=== PATIENT | male | born 1960 | race Caucasian/White ===

== ENCOUNTER 2019-04-05 17:58 | Inpatient (IN) | payer OTHER ==
[~2019-04-05] VITALS: Ht 188 cm; Wt 104.4 kg
--- NOTE | 2019-04-05 18:41 | PHYS DOC ---
Past Medical History Past Medical History: No Pertinent History Additional Past Surgical Histo: Left knee arthroscopy and MCL repair, Left shoulder Smoking: Quit Greater Than 1 Year Additional Information: Vapes Alcohol Use: None Drug Use: None Adult General Chief Complaint Chief Complaint: KNEE INJURY HPI HPI 58-year-old male with recent left knee arthroscopy and ligament repair with Dr. Scott (orthopedics) presents with report of syncopal episode at approximately 1530 today. Patient reports he suddenly became very weak ("his legs just gave out") and ended up falling. Patient reports he thinks he lost consciousness and awoke on the ground having urinated on himself. Denies history of seizures. Denies fever/chills. Reports he feels short of breath and it hurts to take a deep breathe. Reports some left leg swelling which has been similar to how it has been since surgery. Patient reports he called and spoke with Dr. Scott, who sent patient to the ED for evaluation for possible DVT. Review of Systems Review of Systems Constitutional: Denies fever or chills Eyes: Denies redness or eye pain HENT: Denies nasal congestion or sore throat Respiratory: Denies cough; reports shortness of breath Cardiovascular: Denies chest pain or palpitations GI: Denies abdominal pain, nausea, or vomiting : Denies dysuria or hematuria Musculoskeletal: Denies back pain; reports left leg/knee pain and swelling Integument: Denies rash or skin lesions Neurologic: Denies headache, focal weakness or sensory changes; reports loss of bladder after syncopal episode Complete systems were reviewed and found to be within normal limits, except as documented in this note. Current Medications Current Medications Current Medications Medications (Trade) Dose Ordered Sig/Maxine Start Time Stop Time Status Last Admin Dose Admin Sodium Chloride 1,000 ml @ 1,000 mls/hr 1X ONCE 04/05/19 19:15 04/05/19 20:14 DC 04/05/19 19:19 1,000 MLS/HR Allergies Allergies Allergies Coded Allergies Type Severity Reaction Last Updated Verified Penicillins Allergy Severe anaphylaxis 04/05/19 Yes Sulfa (Sulfonamide Antibiotics) Allergy Severe anaphylaxis 04/05/19 Yes Physical Exam Physical Exam Constitutional: Well developed, well nourished, no acute distress, non-toxic appearance HENT: Normocephalic, atraumatic, oropharynx moist Eyes: PERRL, EOMI, conjunctiva normal, no discharge Neck: Normal range of motion, no midline tenderness, supple, no meningeal signs Cardiovascular: Heart rate tachycardic, regular rhythm Lungs & Thorax: Bilateral breath sounds clear to auscultation, no wheezing Abdomen: Soft, no tenderness Skin: Warm, dry, no erythema, post op wounds as below Extremities: No tenderness, ROM intact, left lower extremity edema, left surgical wounds clean, dry and intact with sutures, no surrounding erythema Neurologic: Alert and oriented X 3, normal motor function, normal sensory function, no focal deficits noted Psychologic: Affect normal, judgement normal Current Patient Data Vital Signs Vital Signs Date Time Temp Pulse Resp B/P (MAP) Pulse Ox O2 Delivery O2 Flow Rate FiO2 04/05/19 19:04 16 151/82 (105) 96 Room Air 04/05/19 18:20 98.9 80 98.9 Lab Values Laboratory Tests Test 04/05/19 18:49 04/05/19 19:15 White Blood Count 10.5 x10^3/uL (4.0-11.0) Red Blood Count 5.24 x10^6/uL (4.30-5.70) Hemoglobin 16.5 g/dL (13.0-17.5) Hematocrit 49.0 % (39.0-53.0) Mean Corpuscular Volume 94 fL (79-100) Mean Corpuscular Hemoglobin 32 pg (25-35) Mean Corpuscular Hemoglobin Concent 34 g/dL (31-37) Red Cell Distribution Width 13.6 % (11.5-14.5) Platelet Count 173 x10^3/uL (140-400) Neutrophils (%) (Auto) 82 % (31-73) H Lymphocytes (%) (Auto) 9 % (24-48) L Monocytes (%) (Auto) 8 % (0-9) Eosinophils (%) (Auto) 1 % (0-3) Basophils (%) (Auto) 0 % (0-3) Neutrophils # (Auto) 8.6 x10^3/uL (1.8-7.7) H Lymphocytes # (Auto) 0.9 x10^3/uL (1.0-4.8) L Monocytes # (Auto) 0.9 x10^3/uL (0.0-1.1) Eosinophils # (Auto) 0.1 x10^3/uL (0.0-0.7) Basophils # (Auto) 0.0 x10^3/uL (0.0-0.2) Prothrombin Time 14.2 SEC (11.7-14.0) H Prothrombin Time INR 1.1 (0.8-1.1) Activated Partial Thromboplast Time 29 SEC (24-38) Sodium Level 141 mmol/L (136-145) Potassium Level 4.8 mmol/L (3.5-5.1) Chloride Level 105 mmol/L (98-107) Carbon Dioxide Level 30 mmol/L (21-32) Anion Gap 6 (6-14) Blood Urea Nitrogen 15 mg/dL (8-26) Creatinine 1.1 mg/dL (0.7-1.3) Estimated GFR (Cockcroft-Gault) 68.8 BUN/Creatinine Ratio 14 (6-20) Glucose Level 130 mg/dL (70-99) H Lactic Acid Level 1.6 mmol/L (0.4-2.0) Calcium Level 8.6 mg/dL (8.5-10.1) Magnesium Level 1.8 mg/dL (1.8-2.4) Total Bilirubin 0.4 mg/dL (0.2-1.0) Aspartate Amino Transferase (AST) 15 U/L (15-37) Alanine Aminotransferase (ALT) 31 U/L (16-63) Alkaline Phosphatase 66 U/L (46-116) Creatine Kinase 104 U/L (39-308) Creatine Kinase MB (Mass) 2.7 ng/mL (0.0-3.6) Creatine Kinase MB Relative Index 2.6 % (0-4) Troponin I Quantitative 0.556 ng/mL (0.000-0.055) Total Protein 6.1 g/dL (6.4-8.2) L Albumin 3.4 g/dL (3.4-5.0) Albumin/Globulin Ratio 1.3 (1.0-1.7) Laboratory Tests 04/05/19 18:49 Laboratory Tests 04/05/19 19:15 EKG EKG EKG obtained @ 1907 and read @ 1910. NSR w/o ST-elevation changes noted. 79 BPM.[] Radiology/Procedures Radiology/Procedures PROCEDURE: VENOUS LOWER EX Addendum: To clarify the report, partially occlusive thrombus is seen involving one of the posterior tibial veins and occlusive thrombus is seen involving one of the peroneal veins within the left calf. These findings are consistent with left calf DVT. There is no sonographic evidence of deep venous thrombosis involving the left popliteal, superficial femoral or left common femoral vein. Electronically signed by: Bobby Peralta MD (04/05/2019 8:15 PM) [facility] PROCEDURE: CT HEAD AND CERVICAL SPINE WO CT scan of the head without contrast 04/05/2019 Clinical History: Syncope. Head pain post fall. Technique: Unenhanced, contiguous, 5 mm axial sections were obtained through the head. One or more of the following individualized dose reduction techniques were utilized for this study: 1. Automated exposure control. 2. Adjustment of the mA and/or kV according to patient size. 3. Use of iterative reconstruction technique. Findings: The ventricles and sulci are within normal limits in size and configuration. No acute parenchymal abnormality is seen. No extra-axial fluid collection is noted. No skull fracture is seen. Impression: No acute intracranial abnormality is seen. CT scan of the cervical spine without contrast 04/05/2019 Clinical history: Neck pain post fall. Technique: Unenhanced, contiguous, 0.625 mm axial sections were obtained through the cervical spine. Axial, coronal and sagittal reconstructed images were obtained. One or more of the following individualized dose reduction techniques were utilized for this study: 1. Automated exposure control. 2. Adjustment of the mA and/or kV according to patient size. 3. Use of iterative reconstruction technique. Findings: Sagittal coronal reconstructed images demonstrate minimal lateral curvature of the cervical spine, convex to the right. There is mild straightening of the normal cervical lordosis. Degenerative changes consisting of vertebral endplate sclerosis and minimal to mild anterior vertebral body osteophyte formation are seen involving the cervical disc spaces. No fracture or subluxation cervical vertebrae seen. Degenerative changes are seen involving the uncovertebral and facet joints throughout the mid and lower cervical disc spaces. Bullous emphysematous changes are seen involving the apices of both lungs. Impression: No fracture or subluxation of the cervical vertebra is identified. Electronically signed by: Bobby Peralta MD (04/05/2019 9:07 PM) [facility] PROCEDURE: CT ANGIOGRAPHY CHEST Exam: CT chest with contrast INDICATION: Syncope TECHNIQUE: Sequential axial images through the chest obtained without IV contrast. Sagittal and coronal reformatted images were reconstructed from the axial data and reviewed. Three-D reformatted images reconstructed from the axial data and reviewed. Comparisons: None FINDINGS: Visualized portions of the thyroid are unremarkable. No enlarged mediastinal lymph nodes. Heart size is normal. No pericardial effusion. Thoracic aorta has a normal course and caliber. Pulmonary artery is not enlarged. Acute pulmonary emboli noted within lobar branches of the right middle and upper lobe as well as left upper and lower lobe extending into segmental and subsegmental branches. Subsegmental pulmonary emboli in the right lower lobe also noted. Airways are patent. No consolidation or pneumothorax. Strandy opacities at the dependent portion the lung bases likely representing atelectasis. No suspicious lung nodules are identified. Visualized upper abdomen is unremarkable. Small hiatal hernia. No suspicious osseous lesions or acute fractures. IMPRESSION: Extensive pulmonary emboli noted within lobar branches of the right upper, middle and left upper and lower lobe with subsegmental pulmonary emboli in the right lower lobe. Exposure: One or more of the following in the visualized dose reduction techniques were utilized for this examination: 1. Automated exposure control 2. Adjustment of the MA and/or KV according to patient size 3. Use of iterative of reconstructive technique Electronically signed by: Darien Gonzáles MD (04/05/2019 8:56 PM) [facility] [place] Course & Med Decision Making Course & Med Decision Making Pertinent Labs and Imaging studies reviewed. (See chart for details) Patient with recent surgical arthroscopy to left knee with Dr. Scott presents with syncopal episode and fall with associated leg swelling. Venous doppler positive for DVT. Labs obtained and posted to chart. CT head/cervical spine without acute process. Concern for possible PE. Heparin bolus/gtt initiated. CTA chest with findings consistent for acute bilateral PEs. Patient requiring admission for further evaluation and treatment. Discussed with Dr. Greenwood (bridal stylist sales consultant for Dr. Parker, who admits for PCP) who is in agreement with admission. Discussed case with Dr. Scott (orthopedics) regarding. Consult placed. Discussed findings and plan with patient and family, who acknowledge understanding and agreement. Dragon Disclaimer Dragon Disclaimer This electronic medical record was generated, in whole or in part, using a voice recognition dictation system. Departure Departure Impression: Primary Impression: Syncope Additional Impressions: DVT (deep venous thrombosis) Chest pain S/P left knee surgery Pulmonary embolism Disposition: 09 ADMITTED INPATIENT Admitting Physician: Sonya Greenwood (bridal stylist sales consultant for Dr. Parker who admits for Dr. Weiss (PCP)) Condition: GUARDED Referrals: UNKNOWN PCP NAME (PCP) Scripts Apixaban (ELIQUIS) 5 Mg Tablet 5 MG PO BID for PE for 30 Days, #60 TAB Prov: GILBERT PARKER MD 04/08/19 Apixaban (ELIQUIS) 5 Mg Tablet 10 MG PO BID for PE for 6 Days, #24 TAB Prov: GILBERT PARKER MD 04/08/19 NIHSS Stroke Scale NIH Stroke Scale: NIH Stroke Scale Response (Comments) Value Level of Consciousness: 0 Alert/Responsive 0 LOC Questions: 0 Answers both correctly 0 LOC Commands: 0 Performs both tasks 0 Best Gaze: 0 Normal 0 Visual: 0 No visual loss 0 Facial Palsy: 0 Normal, symmetrical 0 Motor - Left Arm 0 No drift 0 Motor - Right Arm 0 No drift 0 Motor - Left Leg 0 No drift 0 Motor: Right Leg 0 No drift 0 Limb Ataxia: 0 Absent 0 Sensory: 0 No loss 0 Best Language: 0 Normal 0 Dysathria: 0 Normal 0 Extinction and Inattention: 0 Normal 0 Total 0 Critical Care Time Critical care time was 30 minutes which includes time at bedside, spent in discussion of patient's care with specialists and/or family members, with interpretation of laboratory and/or radiological studies and is exclusive of procedures. Problem Qualifiers Primary Impression: Syncope Syncope type: unspecified Qualified Codes: R55 - Syncope and collapse Additional Impressions: DVT (deep venous thrombosis) DVT location: lower extremity Affected thrombotic vein of extremity: unspecified vein of extremity Chronicity: acute Laterality: left Qualified Codes: I82.402 - Acute embolism and thrombosis of unspecified deep veins of left lower extremity Chest pain Chest pain type: unspecified Qualified Codes: R07.9 - Chest pain, unspecified Pulmonary embolism Pulmonary embolism type: unspecified Chronicity: acute Acute cor pulmonale presence: without acute cor pulmonale Qualified Codes: I26.99 - Other pulmonary embolism without acute cor pulmonale LANRE FRANKLIN DO Apr 05, 2019 18:41
[2019-04-05 19:06] LABS: BASO % 0 % (0-3); EOS # 0.1 x10^3/uL (0.0-0.7); EOS % 1 % (0-3); HEMOGLOBIN 16.5 g/dL (13.0-17.5); LYMPH # 0.9 x10^3/uL (1.0-4.8); LYMPH % 9 % (24-48); MEAN CORPUSCULAR HEMOGLOBIN 32 pg (25-35); MEAN CORPUSCULAR HGB CONC 34 g/dL (31-37); MEAN CORPUSCULAR VOLUME 94 fL (79-100); MONO # 0.9 x10^3/uL (0.0-1.1); MONO % 8 % (0-9); NEUT # 8.6 x10^3/uL (1.8-7.7); NEUT % 82 % (31-73); PLATELET COUNT 173 x10^3/uL (140-400); RED BLOOD COUNT 5.24 x10^6/uL (4.30-5.70); RED CELL DISTRIBUTION WIDTH 13.6 % (11.5-14.5); WHITE BLOOD COUNT 10.5 x10^3/uL (4.0-11.0)
[2019-04-05] MEDS ORDERED: IV NORMAL SALINE 1000ML BAG 1,000 ML IV ONE (19:15)
[2019-04-05] MEDS ORDERED: HEPARIN for IV BOLUS 10,000 UNIT/10 ML VIAL. IV ONE (19:30)
[2019-04-05] MEDS ORDERED: HEPARIN for IV BOLUS 10,000 UNIT/10 ML VIAL. IV PRN ×2 (19:30)
[2019-04-05] MEDS ORDERED: ONDANSETRON PF 4 MG/2 ML VIAL. IV PRN (19:30)
--- NOTE | 2019-04-05 19:30 | RAD ---
Left lower extremity venous duplex study 04/05/2019 Clinical History: Left leg pain and swelling. Technique: Using a combination of real time ultrasound imaging and color-flow and pulse Doppler imaging techniques along with graded compression and augmentation, duplex evaluation of the deep venous system of the left lower extremity was performed. Multiple images were obtained. Findings: There is no sonographic evidence of deep venous thrombosis involving the visualized deep venous structures of the left lower extremity. Impression: Negative study. Electronically signed by: Bobby Peralta MD (04/05/2019 7:28 PM) [facility]
[2019-04-05] MEDS: fentaNYL PF VIAL 100 MCG/2 ML VIAL IV PRN ×2 (19:34→23:04)
[2019-04-05 19:37] LABS: PROTHROMBIN TIME PATIENT 14.2 SEC (11.7-14.0)
[2019-04-05 19:45] LABS: CALCIUM 8.6 mg/dL (8.5-10.1); CREATININE 1.1 mg/dL (0.7-1.3); GFR 68.8; POTASSIUM 4.8 mmol/L (3.5-5.1)
[2019-04-05 19:50] LABS: ALBUMIN 3.4 g/dL (3.4-5.0); ALBUMIN/GLOBULIN RATIO 1.3 (1.0-1.7); MAGNESIUM 1.8 mg/dL (1.8-2.4); TOTAL BILIRUBIN 0.4 mg/dL (0.2-1.0); TOTAL PROTEIN 6.1 g/dL (6.4-8.2)
[2019-04-05] MEDS: HEPARIN 25,000UTS/500ML PREMIX 500 ML IV PRN (19:51)
[2019-04-05] MEDS ORDERED: CONTRAST GIVEN. MC PRN (20:00)
[2019-04-05] MEDS ORDERED: IOHEXOL 350 MG/ML 100 ML VIAL. IV ONE (20:00)
--- NOTE | 2019-04-05 20:59 | RAD ---
Exam: CT chest with contrast INDICATION: Syncope TECHNIQUE: Sequential axial images through the chest obtained without IV contrast. Sagittal and coronal reformatted images were reconstructed from the axial data and reviewed. Three-D reformatted images reconstructed from the axial data and reviewed. Comparisons: None FINDINGS: Visualized portions of the thyroid are unremarkable. No enlarged mediastinal lymph nodes. Heart size is normal. No pericardial effusion. Thoracic aorta has a normal course and caliber. Pulmonary artery is not enlarged. Acute pulmonary emboli noted within lobar branches of the right middle and upper lobe as well as left upper and lower lobe extending into segmental and subsegmental branches. Subsegmental pulmonary emboli in the right lower lobe also noted. Airways are patent. No consolidation or pneumothorax. Strandy opacities at the dependent portion the lung bases likely representing atelectasis. No suspicious lung nodules are identified. Visualized upper abdomen is unremarkable. Small hiatal hernia. No suspicious osseous lesions or acute fractures. IMPRESSION: Extensive pulmonary emboli noted within lobar branches of the right upper, middle and left upper and lower lobe with subsegmental pulmonary emboli in the right lower lobe. Exposure: One or more of the following in the visualized dose reduction techniques were utilized for this examination: 1. Automated exposure control 2. Adjustment of the MA and/or KV according to patient size 3. Use of iterative of reconstructive technique Electronically signed by: Darien Gonzáles MD (04/05/2019 8:56 PM) [facility]
--- NOTE | 2019-04-05 21:10 | RAD ---
CT scan of the head without contrast 04/05/2019 Clinical History: Syncope. Head pain post fall. Technique: Unenhanced, contiguous, 5 mm axial sections were obtained through the head. One or more of the following individualized dose reduction techniques were utilized for this study: 1. Automated exposure control. 2. Adjustment of the mA and/or kV according to patient size. 3. Use of iterative reconstruction technique. Findings: The ventricles and sulci are within normal limits in size and configuration. No acute parenchymal abnormality is seen. No extra-axial fluid collection is noted. No skull fracture is seen. Impression: No acute intracranial abnormality is seen. CT scan of the cervical spine without contrast 04/05/2019 Clinical history: Neck pain post fall. Technique: Unenhanced, contiguous, 0.625 mm axial sections were obtained through the cervical spine. Axial, coronal and sagittal reconstructed images were obtained. One or more of the following individualized dose reduction techniques were utilized for this study: 1. Automated exposure control. 2. Adjustment of the mA and/or kV according to patient size. 3. Use of iterative reconstruction technique. Findings: Sagittal coronal reconstructed images demonstrate minimal lateral curvature of the cervical spine, convex to the right. There is mild straightening of the normal cervical lordosis. Degenerative changes consisting of vertebral endplate sclerosis and minimal to mild anterior vertebral body osteophyte formation are seen involving the cervical disc spaces. No fracture or subluxation cervical vertebrae seen. Degenerative changes are seen involving the uncovertebral and facet joints throughout the mid and lower cervical disc spaces. Bullous emphysematous changes are seen involving the apices of both lungs. Impression: No fracture or subluxation of the cervical vertebra is identified. Electronically signed by: Bobby Peralta MD (04/05/2019 9:07 PM) [facility]
[2019-04-05] MEDS ORDERED: ASPIRIN 325 MG TABLET PO ONE (22:00)
[2019-04-05 22:05] VITALS: BP 162/100
[2019-04-05 23:05] VITALS: BP 145/86
[2019-04-05 23:10] LABS: BILIRUBIN,URINE NEGATIVE (NEG); CLARITY,URINE CLEAR; COLOR,URINE YELLOW; NITRITE,URINE NEGATIVE (NEG); PH,URINE 5.5; PROTEIN,URINE NEGATIVE (NEG-TRACE); UROBILINOGEN,URINE 0.2 mg/dL (0.2 mg/dL)
[2019-04-05 23:17] LABS: BACTERIA,URINE 0 /HPF (0-FEW); RBC,URINE 0 /HPF (0-2); WBC,URINE RARE /HPF (0-4)
[2019-04-06 03:50] VITALS: BP 149/76
[2019-04-06] MEDS: fentaNYL PF VIAL 100 MCG/2 ML VIAL IV PRN (04:23)
--- NOTE | 2019-04-06 06:37 | EKG ---
[facility] [address] [place] [address] Test Date: 2019-04-05 Test Time: 19:07:05 Pat Name: HUMBERTO ARAGON Department: Room: Gender: M Manager Dialysis: : 1960 Requested By: LANRE FRANKLIN Order Number: [id number] Reading MD: Measurements Intervals [place] Rate: 79 P: 43 MT: 168 QRS: 32 QRSD: 92 T: 14 QT: 372 QTc: 428 Interpretive Statements SINUS RHYTHM NORMAL ECG RI6.01 Unconfirmed report No previous ECG available for comparison
[2019-04-06 07:00] VITALS: BP 158/72
[2019-04-06] MEDS ORDERED: MELO15TA23 PO (08:25)
[2019-04-06] MEDS ORDERED: DOCU-109 PO (08:25)
[2019-04-06] MEDS ORDERED: ASPI-630 PO (08:25)
[2019-04-06] MEDS ORDERED: CETI10TA22 PO (08:25)
[2019-04-06] MEDS ORDERED: CALC500T54 PO (08:25)
[2019-04-06] MEDS ORDERED: CHOL100013 PO (08:25)
[2019-04-06] MEDS ORDERED: HYDR-2761 PO (08:25)
[2019-04-06] MEDS ORDERED: OMEP20CA10 PO (08:25)
[2019-04-06] MEDS ORDERED: ANTI-COAG MONITOR BY PHARMACY. MC PRN (08:30)
--- NOTE | 2019-04-06 10:18 | PDOC ---
Provider Note Provider Note Pt seen.H&P dictated.#[id number]. GILBERT PARKER MD Apr 06, 2019 10:18
--- NOTE | 2019-04-06 10:34 | PDOC2 ---
CONSULT Date of Consult Date of Consult DATE: 04/06/19 TIME: 10:21 Reason for Consult Reason for Consult: Patient with syncopal episode at home after recent arthroscope of right knee, and concern of DVT. Identification/Chief Complaint Chief Complaint Dr Aguilera Source Source: Chart review, Patient History of Present Illness Reason for Visit: Syncopal episode at home yesterday after previous surgery two days prior,with DVT. Past Surgical History Past Surgical History: Other (Right knee arhtroscopy and MCL repair.) Current Problem List Problem List Problems Medical Problems: (1) Chest pain Status: Acute (2) Pulmonary embolism Status: Acute Current Medications Current Medications Current Medications Sodium Chloride 1,000 ml @ 1,000 mls/hr 1X ONCE IV Last administered on 04/05/19at 19:19; Start 04/05/19 at 19:15; Stop 04/05/19 at 20:14; Status DC Ondansetron HCl (Zofran) 4 mg PRN Q8HRS PRN IV NAUSEA/VOMITING; Start 04/05/19 at 19:30; Stop 04/06/19 at 19:29 Fentanyl Citrate (Fentanyl 2ml Vial) 50 mcg PRN Q2HRS PRN IV PAIN Last administered on 04/06/19at 04:23; Start 04/05/19 at 19:30 Heparin Sodium (Porcine) (Heparin Sodium) 7,600 unit 1X ONCE IV Last administered on 04/05/19at 19:52; Start 04/05/19 at 19:30; Stop 04/05/19 at 19:3 1; Status DC Heparin Sodium/ Dextrose 500 ml @ 0 mls/hr CONT PRN IV SEE COMMENTS Last administered on 04/05/19at 19:52; Start 04/05/19 at 19:30 Heparin Sodium (Porcine) (Heparin Sodium) 2,850 unit PRN Q6HRS PRN IV FOR UFH LEVEL LESS THAN 0.2; Start 04/05/19 at 19:30 Heparin Sodium (Porcine) (Heparin Sodium) 1,400 unit PRN Q6HRS PRN IV FOR UFH LEVEL 0.2 - 0.29; Start 04/05/19 at 19:30 Iohexol (Omnipaque 350 Mg/ml) 100 ml 1X ONCE IV Last administered on 04/05/19at 20:35; Start 04/05/19 at 20:00; Stop 04/05/19 at 20:01; Status DC Info (CONTRAST GIVEN -- Rx MONITORING) 1 each PRN DAILY PRN MC SEE COMMENTS; Start 04/05/19 at 20:00; Stop 04/07/19 at 19:59 Aspirin (Kendra Aspirin) 325 mg 1X ONCE PO ; Start 04/05/19 at 22:00; Stop 04/05/19 at 22:01; Status DC Info (Anti-Coagulation Monitoring By Pharmacy) 1 each PRN DAILY PRN MC SEE COMMENTS; Start 04/06/19 at 08:30 Active Scripts Active Reported Colace (Docusate Sodium) 100 Mg Capsule 1 Cap PO BID Vitamin D (Cholecalciferol (Vitamin D3)) 1,000 Unit Capsule 3,000 Unit PO DAILY PRN Zyrtec (Cetirizine Hcl) 10 Mg Tablet 1 Tab PO DAILY Meloxicam 15 Mg Tablet 1 Tab PO DAILY Aspirin 81 Mg Tab.chew 1 Tab PO DAILY Hydrocodone-Apap 5-325 (Hydrocodone Bit/Acetaminophen) 1 Tab Tablet 2 Tab PO PRN Q4HRS PRN Calcium (Calcium Carbonate) 500 Mg Tab.chew 500 Mg PO DAILY Omeprazole 20 Mg Capsule. 1 Cap PO DAILY Allergies Allergies: Coded Allergies: Penicillins (Verified Allergy, Severe, anaphylaxis, 04/05/19) Sulfa (Sulfonamide Antibiotics) (Verified Allergy, Severe, anaphylaxis, 04/05/19) Physical Exam General: Alert, Oriented X3, Cooperative, No acute distress Extremities: Normal pulses MUSCULOSKELETAL: Other (Patient with surgical portals in left knee r/t arthroscopy) Vitals VITALS Vital Signs Date Time Temp Pulse Resp B/P (MAP) Pulse Ox O2 Delivery O2 Flow Rate FiO2 04/06/19 07:34 18 93 Room Air 04/06/19 07:00 98.4 74 158/72 (100) 98.4 Labs Labs Laboratory Tests Test 04/05/19 18:49 04/05/19 19:15 04/05/19 22:30 04/05/19 23:00 White Blood Count 10.5 x10^3/uL (4.0-11.0) Red Blood Count 5.24 x10^6/uL (4.30-5.70) Hemoglobin 16.5 g/dL (13.0-17.5) Hematocrit 49.0 % (39.0-53.0) Mean Corpuscular Volume 94 fL (79-100) Mean Corpuscular Hemoglobin 32 pg (25-35) Mean Corpuscular Hemoglobin Concent 34 g/dL (31-37) Red Cell Distribution Width 13.6 % (11.5-14.5) Platelet Count 173 x10^3/uL (140-400) Neutrophils (%) (Auto) 82 % (31-73) Lymphocytes (%) (Auto) 9 % (24-48) Monocytes (%) (Auto) 8 % (0-9) Eosinophils (%) (Auto) 1 % (0-3) Basophils (%) (Auto) 0 % (0-3) Neutrophils # (Auto) 8.6 x10^3/uL (1.8-7.7) Lymphocytes # (Auto) 0.9 x10^3/uL (1.0-4.8) Monocytes # (Auto) 0.9 x10^3/uL (0.0-1.1) Eosinophils # (Auto) 0.1 x10^3/uL (0.0-0.7) Basophils # (Auto) 0.0 x10^3/uL (0.0-0.2) Prothrombin Time 14.2 SEC (11.7-14.0) Prothromb Time International Ratio 1.1 (0.8-1.1) Activated Partial Thromboplast Time 29 SEC (24-38) Sodium Level 141 mmol/L (136-145) Potassium Level 4.8 mmol/L (3.5-5.1) Chloride Level 105 mmol/L (98-107) Carbon Dioxide Level 30 mmol/L (21-32) Anion Gap 6 (6-14) Blood Urea Nitrogen 15 mg/dL (8-26) Creatinine 1.1 mg/dL (0.7-1.3) Estimated GFR (Cockcroft-Gault) 68.8 BUN/Creatinine Ratio 14 (6-20) Glucose Level 130 mg/dL (70-99) Lactic Acid Level 1.6 mmol/L (0.4-2.0) Calcium Level 8.6 mg/dL (8.5-10.1) Magnesium Level 1.8 mg/dL (1.8-2.4) Total Bilirubin 0.4 mg/dL (0.2-1.0) Aspartate Amino Transf (AST/SGOT) 15 U/L (15-37) Alanine Aminotransferase (ALT/SGPT) 31 U/L (16-63) Alkaline Phosphatase 66 U/L (46-116) Creatine Kinase 104 U/L (39-308) Creatine Kinase MB (Mass) 2.7 ng/mL (0.0-3.6) Creatine Kinase MB Relative Index 2.6 % (0-4) Troponin I Quantitative 0.556 ng/mL (0.000-0.055) 0.720 ng/mL (0.000-0.055) Total Protein 6.1 g/dL (6.4-8.2) Albumin 3.4 g/dL (3.4-5.0) Albumin/Globulin Ratio 1.3 (1.0-1.7) Urine Collection Type Unknown Urine Color Yellow Urine Clarity Clear Urine pH 5.5 Urine Specific [place] >=1.030 Urine Protein Negative mg/dL (NEG-TRACE) Urine Glucose (UA) Negative mg/dL (NEG) Urine Ketones (Stick) Negative mg/dL (NEG) Urine Blood Negative (NEG) Urine Nitrite Negative (NEG) Urine Bilirubin Negative (NEG) Urine Urobilinogen Dipstick 0.2 mg/dL (0.2 mg/dL) Urine Leukocyte Esterase Trace (NEG) Urine RBC 0 /HPF (0-2) Urine WBC Rare /HPF (0-4) Urine Squamous Epithelial Cells None /LPF Urine Bacteria 0 /HPF (0-FEW) Urine Mucus Slight /LPF Test 04/06/19 02:00 04/06/19 08:45 Heparin Anti-Xa Act, Unfractionated 0.63 IU/mL (0.30-0.70) 0.68 IU/mL (0.30-0.70) Troponin I Quantitative 0.535 ng/mL (0.000-0.055) Laboratory Tests Test 04/05/19 18:49 04/05/19 19:15 04/05/19 22:30 04/05/19 23:00 White Blood Count 10.5 x10^3/uL (4.0-11.0) Red Blood Count 5.24 x10^6/uL (4.30-5.70) Hemoglobin 16.5 g/dL (13.0-17.5) Hematocrit 49.0 % (39.0-53.0) Mean Corpuscular Volume 94 fL (79-100) Mean Corpuscular Hemoglobin 32 pg (25-35) Mean Corpuscular Hemoglobin Concent 34 g/dL (31-37) Red Cell Distribution Width 13.6 % (11.5-14.5) Platelet Count 173 x10^3/uL (140-400) Neutrophils (%) (Auto) 82 % (31-73) Lymphocytes (%) (Auto) 9 % (24-48) Monocytes (%) (Auto) 8 % (0-9) Eosinophils (%) (Auto) 1 % (0-3) Basophils (%) (Auto) 0 % (0-3) Neutrophils # (Auto) 8.6 x10^3/uL (1.8-7.7) Lymphocytes # (Auto) 0.9 x10^3/uL (1.0-4.8) Monocytes # (Auto) 0.9 x10^3/uL (0.0-1.1) Eosinophils # (Auto) 0.1 x10^3/uL (0.0-0.7) Basophils # (Auto) 0.0 x10^3/uL (0.0-0.2) Prothrombin Time 14.2 SEC (11.7-14.0) Prothromb Time International Ratio 1.1 (0.8-1.1) Activated Partial Thromboplast Time 29 SEC (24-38) Sodium Level 141 mmol/L (136-145) Potassium Level 4.8 mmol/L (3.5-5.1) Chloride Level 105 mmol/L (98-107) Carbon Dioxide Level 30 mmol/L (21-32) Anion Gap 6 (6-14) Blood Urea Nitrogen 15 mg/dL (8-26) Creatinine 1.1 mg/dL (0.7-1.3) Estimated GFR (Cockcroft-Gault) 68.8 BUN/Creatinine Ratio 14 (6-20) Glucose Level 130 mg/dL (70-99) Lactic Acid Level 1.6 mmol/L (0.4-2.0) Calcium Level 8.6 mg/dL (8.5-10.1) Magnesium Level 1.8 mg/dL (1.8-2.4) Total Bilirubin 0.4 mg/dL (0.2-1.0) Aspartate Amino Transf (AST/SGOT) 15 U/L (15-37) Alanine Aminotransferase (ALT/SGPT) 31 U/L (16-63) Alkaline Phosphatase 66 U/L (46-116) Creatine Kinase 104 U/L (39-308) Creatine Kinase MB (Mass) 2.7 ng/mL (0.0-3.6) Creatine Kinase MB Relative Index 2.6 % (0-4) Troponin I Quantitative 0.556 ng/mL (0.000-0.055) 0.720 ng/mL (0.000-0.055) Total Protein 6.1 g/dL (6.4-8.2) Albumin 3.4 g/dL (3.4-5.0) Albumin/Globulin Ratio 1.3 (1.0-1.7) Urine Collection Type Unknown Urine Color Yellow Urine Clarity Clear Urine pH 5.5 Urine Specific [place] >=1.030 Urine Protein Negative mg/dL (NEG-TRACE) Urine Glucose (UA) Negative mg/dL (NEG) Urine Ketones (Stick) Negative mg/dL (NEG) Urine Blood Negative (NEG) Urine Nitrite Negative (NEG) Urine Bilirubin Negative (NEG) Urine Urobilinogen Dipstick 0.2 mg/dL (0.2 mg/dL) Urine Leukocyte Esterase Trace (NEG) Urine RBC 0 /HPF (0-2) Urine WBC Rare /HPF (0-4) Urine Squamous Epithelial Cells None /LPF Urine Bacteria 0 /HPF (0-FEW) Urine Mucus Slight /LPF Test 04/06/19 02:00 04/06/19 08:45 Heparin Anti-Xa Act, Unfractionated 0.63 IU/mL (0.30-0.70) 0.68 IU/mL (0.30-0.70) Troponin I Quantitative 0.535 ng/mL (0.000-0.055) Assessment/Plan Assessment/Plan POD # 2 S/P Left knee arthroscopy with MCL repair per Dr Scott on 04/03/2019 motor and sensory intact distally dressing dry and intact portals well approximated calf soft and non tender PE/DVT Will follow progress DADA HOUGH APRN Apr 06, 2019 10:34
[2019-04-06 11:00] VITALS: BP 130/67
--- NOTE | 2019-04-06 11:28 | HP ---
ADMIT DATE: 04/05/2019 LOCATION: 263. REASON FOR ADMISSION TO THE HOSPITAL: Pulmonary embolism. HISTORY OF PRESENT ILLNESS: The patient is a 58-year-old male. The patient had a left knee arthroscopy for ligament repair by Dr. Scott on Saturday, which is 3 days ago and yesterday afternoon, he was going to the toilet, he became dizzy and he ended up falling, does not remember what happened and for a couple of minutes, he does not recall when he regained consciousness. He called his and they brought him to the hospital. He had a sonogram shows a DVT [id number] and also pulmonary embolism on the CT angiogram. He was put on IV heparin. The patient used to see Dr. Weiss as primary physician in the past, but lately is going to the [place] for his treatments. He has not seen Dr. Weiss for a couple of years. PAST MEDICAL HISTORY: Denies any heart problems, lung problems. PAST SURGICAL HISTORY: Just had a left knee arthroscopy, MCL repair. ALLERGIES: PENICILLIN AND SULFA. MEDICATIONS AT HOME: The patient was put on meloxicam baby aspirin and Lortab for pain. He also takes calcium, Zyrtec, omeprazole. FAMILY HISTORY: The patient is adopted. SOCIAL HISTORY: Used to smoke for a couple of years, now he is vaping. Denies any street drugs. REVIEW OF SYSTEMS: The patient is chest pain free, had chest pain yesterday. Denies nausea or vomiting. Has some pain in the left knee. Rest of the 14-system was reviewed and negative. PHYSICAL EXAMINATION: VITAL SIGNS: At the time of admission, temperature 98, pulse 16, blood pressure 164/55, 96 on room air. HEENT: Head is atraumatic. Pupils equal. Oral cavity: No congestion. NECK: Supple. Thyroid not enlarged. JVD not elevated. CHEST: Symmetrical. CARDIOVASCULAR: S1, S2. LUNGS: Clear to auscultation. No wheezing. ABDOMEN: Soft, no mass palpable. EXTERNAL GENITALIA: No Khan. RECTAL: Deferred. EXTREMITIES: Has a dressing in the left knee, did not examine at this time. The patient has no calf tenderness. Pulses 1+. NEUROLOGIC: Moving all extremities. I did not examine the extremity in the left leg. LABORATORY DATA: Shows a white count of 10, hemoglobin 16, platelets 173. INR 1.1. Electrolytes show sodium 141, potassium 4.8, chloride 105, bicarb 30, BUN 15, creatinine 1.1, glucose 130. LFTs were normal. INR is 1.1. Urine negative for infection. Sonogram shows a calf, left and CT head was negative. CT angiogram of the chest shows extensive pulmonary emboli, right upper, middle, left upper and lower lobe. FINAL IMPRESSION: 1. Pulmonary embolism. 2. Deep venous thrombosis. 3. Recent left knee laparoscopic surgery. 4. History of smoking, now vaping. PLAN: At this time, the patient is admitted to the hospital, IV heparin drip. Pulmonary is consulted for pulmonary embolism. Hematology consulted to rule out hypercoagulable state. Also, will have orthopedic followup because of the knee arthroscopy. The patient is hemodynamically stable. GILBERT PARKER MD DR: BRIANNA/dru JOB#: [id number] / [id number]
[2019-04-06] MEDS: CALCIUM CARBONATE 500 MG TABLET PO SCH (12:56)
[2019-04-06] MEDS: CHOLECALCIFEROL (VITAMIN D3) 1,000 UNIT TABLET PO SCH (12:57)
[2019-04-06] MEDS: ASPIRIN CHEWABLE 81 MG TABLET. PO SCH (12:57)
[2019-04-06] MEDS: CETIRIZINE HCL 10 MG TABLET. PO SCH (12:57)
[2019-04-06] MEDS: DOCUSATE SODIUM 100 MG CAPSULE. PO SCH ×2 (12:59→20:49)
--- NOTE | 2019-04-06 15:34 | NUR ---
SS following for discharge planning. SS reviewed pt chart. Pt is from home with spouse and is currently on room air. No discharge needs noted at this time. SS will continue to follow for discharge planning.
[2019-04-06 19:35] VITALS: BP 159/76
[2019-04-06] MEDS: HYDROcodone/APAP 5/325MG 1 TAB TABLET PO PRN (19:50)
[2019-04-06] MEDS ORDERED: NICOTINE 7MG PATCH. TD ONE (21:00)
[2019-04-06 23:00] VITALS: BP 133/71
[2019-04-07] MEDS: HYDROcodone/APAP 5/325MG 1 TAB TABLET PO PRN ×6 (00:06→20:37)
--- NOTE | 2019-04-07 00:14 | CONS ---
DATE OF CONSULTATION: 04/06/2019 ATTENDING PHYSICIAN: Hilda Otoole MD REASON FOR CONSULTATION: The patient seen in pulmonary consultation at the request of Dr. Otoole for abnormal CT chest. HISTORY OF PRESENT ILLNESS: The patient is a 58-year-old that recently had a knee arthroscopic surgery. Yesterday, he started feeling dizzy when he got up to go to the bathroom and passed out. He was seen in the Emergency Department and underwent CT angiogram, which I personally reviewed. There are pulmonary emboli noted within lobar branches of the right upper lobe, left upper lobe and left lower lobe. The patient also had venous Dopplers of the lower extremities, which was positive on the left. The patient denies any previous history of thrombophilia. No family history of thrombophilia. PAST MEDICAL HISTORY: Otherwise unremarkable except for prior history of tobacco use. Has underlying probable COPD, unknown FEV1. PAST SURGICAL HISTORY: As indicated above, arthroscopic knee surgery. ALLERGIES: PENICILLIN AND SULFA. HOME MEDICATIONS: List was reviewed. FAMILY HISTORY: Unknown. The patient was adopted. SOCIAL HISTORY: He continues to smoke. REVIEW OF SYSTEMS: As indicated above, otherwise, a 10-point system was reviewed and negative. PHYSICAL EXAMINATION: GENERAL: The patient was in no respiratory distress. Since admission, he has been hemodynamically stable. He is currently on room air. HEENT: Eyes, the sclerae were nonicteric. NECK: Jugular venous distention was not elevated. No lymphadenopathy. CHEST: Full expansion. LUNGS: Adequate air flow with no wheezes. CARDIOVASCULAR: Regular rate and rhythm with S1, S2, no S3. ABDOMEN: Soft, nontender and nondistended. EXTREMITIES: Dressing over the left knee, otherwise some edema. NEUROLOGIC: The patient was awake, alert, following commands. A detailed neuro exam was not performed. LABORATORY DATA: White count was normal. Hemoglobin and hematocrit were noted. Electrolytes were noted. IMPRESSION: 1. Acute pulmonary embolism. 2. Left deep venous thrombosis. 3. Elevated troponin secondary to right heart strain. 4. Status post left knee arthroscopic surgery. 5. Chronic obstructive pulmonary disease, unknown FEV1. PLAN: 1. Continue current heparin. 2. Home on Eliquis. 3. Recommend treatment for [address] chest in 2 months. 5. The patient instructed on the importance of discontinuing tobacco use. 6. Follow orthopedic input. I do appreciate the privilege in sharing in the patient's care. FOSTER BIRD MD DR: DAYA/dru JOB#: [id number] / [id number]
[2019-04-07 03:50] VITALS: BP 153/70
[2019-04-07] MEDS: HEPARIN 25,000UTS/500ML PREMIX 500 ML IV PRN (04:17)
[2019-04-07 07:00] VITALS: BP 139/92
[2019-04-07] MEDS: PANTOPRAZOLE 40 MG TABLET.DR. PO SCH (08:29)
[2019-04-07] MEDS: DOCUSATE SODIUM 100 MG CAPSULE. PO SCH ×2 (08:32→20:37)
[2019-04-07] MEDS: CETIRIZINE HCL 10 MG TABLET. PO SCH (08:32)
[2019-04-07] MEDS: ASPIRIN CHEWABLE 81 MG TABLET. PO SCH (08:32)
[2019-04-07] MEDS: CALCIUM CARBONATE 500 MG TABLET PO SCH (08:32)
[2019-04-07] MEDS: CHOLECALCIFEROL (VITAMIN D3) 1,000 UNIT TABLET PO SCH (08:33)
--- NOTE | 2019-04-07 09:29 | PDOC2 ---
CONSULT Date of Consult Date of Consult DATE: 04/07/19 TIME: 09:22 Reason for consultation: Pulmonary embolism postoperatively Consult: Hematology oncology, Dr. Sarah Perrin History of present illness: He is a 58-year-old man who had a left knee arthroscopy for MCL repair on 03 April, 2 days later he was getting up to go to the bathroom and using his crutches and became dizzy, he fell, lost consciousness, and awoke with a sweat and shortness of breath and came to the ER and was noted to have multilobar PE and left calf vein thrombosis w/ swelling to his thigh, he had been on aspirin prophylaxis perioperatively. Re: the PE it was acute, severe, extending from the right and left lungs lobar to subsegmental, associated with calf vein thrombosis, and improving nicely after starting heparin drip, not requiring oxygen at this time. No family history of thrombophilia though he is adopted. No recent travel, not on hormones. Past medical history: Probable COPD History of tobacco Basal cell carcinoma Past surgical history: Skin cancer resection Left knee arthroscopy Allergies: Penicillin and sulfa Medications: See attached list Social history: , history of tobacco and vaping Family history: Unknown as he is adopted Review of systems: Constipation, trouble breathing improved, no chest pain, swelling of his left lower extremity, some numbness and tingling that was related to compression that resolved, skin lesions followed by dermatology as needed, otherwise 10 point review of systems negative. Physical exam: Vitals reviewed Gen.: Well-nourished and well-developed in no acute distress HEENT: mucous membranes moist, head normocephalic atraumatic Neck: Supple, no lymphadenopathy Lymph nodes: No palpable lymphadenopathy neck or axilla Lungs: Breathing comfortably on room air, no evidence of respiratory distress Abdomen: Soft, nontender, nondistended Extremities: No cyanosis, LLE edema to thigh, L knee covered Skin: No obvious rashes or skin breakdown Neuro: Alert and oriented �3 Psych: Normal mood and affect Lab reviewed: White count 10.5, Hemoccult and 16.5, platelets 173 INR 1.1 PTT normal Creatinine 1.1 Troponin downtrending to 0.5 Rads reviewed: [address] angiogram showed extensive PE right upper lobe, right middle lobe, left upper lobe, left lower lobe lobar and right lower lobe subsegmental 05 April ultrasound showed left calf vein thrombosis, partially occlusive thrombosis in one posterior tibial vein and occlusive thrombosis in one peroneal vein Case discussed with: Patient, records reviewed in the medical center as available and [facility] including labs and radiology, please see note for summary details. Assessment and Plan: He is a 58-year-old man with postoperative acute PE and left calf vein thrombosis, we'll transition to apixaban for 6 months PE: Not requiring oxygen, improving on heparin drip, rec transition to novel anticoagulant, apixaban 10 mg by mouth twice a day �7 days followed by 5 mg by mouth twice a day times a planned 6 months Left calf vein thrombosis: Recommend compression stockings as able, will DC aspirin Disposition: Per primary, he will follow-up with us after discharge Constipation: We'll add MiraLAX Tobacco abuse: Recommend complete tobacco cessation Thank you kindly for this consultation, and please do not hesitate to call with questions. Past Surgical History Past Surgical History: Other (Right knee arhtroscopy and MCL repair.) Current Problem List Problem List Problems Medical Problems: (1) COPD (chronic obstructive pulmonary disease) Status: Chronic (2) Pulmonary embolism Status: Acute Current Medications Current Medications Current Medications Sodium Chloride 1,000 ml @ 1,000 mls/hr 1X ONCE IV Last administered on 04/05/19at 19:19; Start 04/05/19 at 19:15; Stop 04/05/19 at 20:14; Status DC Ondansetron HCl (Zofran) 4 mg PRN Q8HRS PRN IV NAUSEA/VOMITING; Start 04/05/19 at 19:30; Stop 04/06/19 at 19:29; Status DC Fentanyl Citrate (Fentanyl 2ml Vial) 50 mcg PRN Q2HRS PRN IV PAIN Last administered on 04/06/19at 04:23; Start 04/05/19 at 19:30 Heparin Sodium (Porcine) (Heparin Sodium) 7,600 unit 1X ONCE IV Last administered on 04/05/19at 19:52; Start 04/05/19 at 19:30; Stop 04/05/19 at 19:31; Status DC Heparin Sodium/ Dextrose 500 ml @ 0 mls/hr CONT PRN IV SEE COMMENTS Last administered on 04/07/19at 04:17; Start 04/05/19 at 19:30 Heparin Sodium (Porcine) (Heparin Sodium) 2,850 unit PRN Q6HRS PRN IV FOR UFH LEVEL LESS THAN 0.2; Start 04/05/19 at 19:30 Heparin Sodium (Porcine) (Heparin Sodium) 1,400 unit PRN Q6HRS PRN IV FOR UFH LEVEL 0.2 - 0.29; Start 04/05/19 at 19:30 Iohexol (Omnipaque 350 Mg/ml) 100 ml 1X ONCE IV Last administered on 04/05/19at 20:35; Start 04/05/19 at 20:00; Stop 04/05/19 at 20:01; Status DC Info (CONTRAST GIVEN -- Rx MONITORING) 1 each PRN DAILY PRN MC SEE COMMENTS; Start 04/05/19 at 20:00; Stop 04/07/19 at 19:59 Aspirin (Kendra Aspirin) 325 mg 1X ONCE PO ; Start 04/05/19 at 22:00; Stop 04/05/19 at 22:01; Status DC Info (Anti-Coagulation Monitoring By Pharmacy) 1 each PRN DAILY PRN MC SEE COMMENTS Last administered on 04/06/19at 15:22; Start 04/06/19 at 08:30 Aspirin (Children'S Aspirin) 81 mg DAILY PO Last administered on 04/07/19 08:33; Start 04/06/19 at 12:00 Cetirizine HCl (ZyrTEC) 10 mg DAILY PO Last administered on 04/07/19 08:33; Start 04/06/19 at 12:00 Docusate Sodium (Colace) 100 mg BID PO Last administered on 04/07/19 08:33; Start 04/06/19 at 12:00 Acetaminophen/ Hydrocodone Bitart (Lortab 5/325) 2 tab PRN Q4HRS PRN PO MILD PAIN / TEMP Last administered on 04/07/19 08:32; Start 04/06/19 at 10:15 Calcium Carbonate/ Glycine (Oscal) 500 mg DAILY PO Last administered on 04/07/19 08:33; Start 04/06/19 at 12:00 Vitamin D (Vitamin D3) 3,000 unit DAILY PO Last administered on 04/07/19 08:33; Start 04/06/19 at 12:00 Pantoprazole Sodium (Protonix) 40 mg DAILYAC PO Last administered on 8/13/19at 08:32; Start 04/07/19 at 07:30 Nicotine (Nicoderm Cq 7mg) 1 patch DAILY TD ; Start 04/07/19 at 09:00 Nicotine (Nicoderm Cq 7mg) 1 patch 1X ONCE TD Last administered on 04/06/19at 21:33; Start 04/06/19 at 21:00; Stop 04/06/19 at 21:01; Status DC Active Scripts Active Reported Colace (Docusate Sodium) 100 Mg Capsule 1 Cap PO BID Vitamin D (Cholecalciferol (Vitamin D3)) 1,000 Unit Capsule 3,000 Unit PO DAILY PRN Zyrtec (Cetirizine Hcl) 10 Mg Tablet 1 Tab PO DAILY Meloxicam 15 Mg Tablet 1 Tab PO DAILY Aspirin 81 Mg Tab.chew 1 Tab PO DAILY Hydrocodone-Apap 5-325 (Hydrocodone Bit/Acetaminophen) 1 Tab Tablet 2 Tab PO PRN Q4HRS PRN Calcium (Calcium Carbonate) 500 Mg Tab.chew 500 Mg PO DAILY Omeprazole 20 Mg Capsule. 1 Cap PO DAILY Allergies Allergies: Coded Allergies: Penicillins (Verified Allergy, Severe, anaphylaxis, 04/05/19) Sulfa (Sulfonamide Antibiotics) (Verified Allergy, Severe, anaphylaxis, 04/05/19) Vitals VITALS Vital Signs Date Time Temp Pulse Resp B/P (MAP) Pulse Ox O2 Delivery O2 Flow Rate FiO2 04/07/19 08:32 93 Room Air 04/07/19 07:00 97.7 55 18 139/92 (108) 97.7 Labs Labs Laboratory Tests Test 04/05/19 18:49 04/05/19 19:15 04/05/19 22:30 04/05/19 23:00 White Blood Count 10.5 x10^3/uL (4.0-11.0) Red Blood Count 5.24 x10^6/uL (4.30-5.70) Hemoglobin 16.5 g/dL (13.0-17.5) Hematocrit 49.0 % (39.0-53.0) Mean Corpuscular Volume 94 fL (79-100) Mean Corpuscular Hemoglobin 32 pg (25-35) Mean Corpuscular Hemoglobin Concent 34 g/dL (31-37) Red Cell Distribution Width 13.6 % (11.5-14.5) Platelet Count 173 x10^3/uL (140-400) Neutrophils (%) (Auto) 82 % (31-73) Lymphocytes (%) (Auto) 9 % (24-48) Monocytes (%) (Auto) 8 % (0-9) Eosinophils (%) (Auto) 1 % (0-3) Basophils (%) (Auto) 0 % (0-3) Neutrophils # (Auto) 8.6 x10^3/uL (1.8-7.7) Lymphocytes # (Auto) 0.9 x10^3/uL (1.0-4.8) Monocytes # (Auto) 0.9 x10^3/uL (0.0-1.1) Eosinophils # (Auto) 0.1 x10^3/uL (0.0-0.7) Basophils # (Auto) 0.0 x10^3/uL (0.0-0.2) Prothrombin Time 14.2 SEC (11.7-14.0) Prothromb Time International Ratio 1.1 (0.8-1.1) Activated Partial Thromboplast Time 29 SEC (24-38) Sodium Level 141 mmol/L (136-145) Potassium Level 4.8 mmol/L (3.5-5.1) Chloride Level 105 mmol/L (98-107) Carbon Dioxide Level 30 mmol/L (21-32) Anion Gap 6 (6-14) Blood Urea Nitrogen 15 mg/dL (8-26) Creatinine 1.1 mg/dL (0.7-1.3) Estimated GFR (Cockcroft-Gault) 68.8 BUN/Creatinine Ratio 14 (6-20) Glucose Level 130 mg/dL (70-99) Lactic Acid Level 1.6 mmol/L (0.4-2.0) Calcium Level 8.6 mg/dL (8.5-10.1) Magnesium Level 1.8 mg/dL (1.8-2.4) Total Bilirubin 0.4 mg/dL (0.2-1.0) Aspartate Amino Transf (AST/SGOT) 15 U/L (15-37) Alanine Aminotransferase (ALT/SGPT) 31 U/L (16-63) Alkaline Phosphatase 66 U/L (46-116) Creatine Kinase 104 U/L (39-308) Creatine Kinase MB (Mass) 2.7 ng/mL (0.0-3.6) Creatine Kinase MB Relative Index 2.6 % (0-4) Troponin I Quantitative 0.556 ng/mL (0.000-0.055) 0.720 ng/mL (0.000-0.055) Total Protein 6.1 g/dL (6.4-8.2) Albumin 3.4 g/dL (3.4-5.0) Albumin/Globulin Ratio 1.3 (1.0-1.7) Urine Collection Type Unknown Urine Color Yellow Urine Clarity Clear Urine pH 5.5 Urine Specific Mathis >=1.030 Urine Protein Negative mg/dL (NEG-TRACE) Urine Glucose (UA) Negative mg/dL (NEG) Urine Ketones (Stick) Negative mg/dL (NEG) Urine Blood Negative (NEG) Urine Nitrite Negative (NEG) Urine Bilirubin Negative (NEG) Urine Urobilinogen Dipstick 0.2 mg/dL (0.2 mg/dL) Urine Leukocyte Esterase Trace (NEG) Urine RBC 0 /HPF (0-2) Urine WBC Rare /HPF (0-4) Urine Squamous Epithelial Cells None /LPF Urine Bacteria 0 /HPF (0-FEW) Urine Mucus Slight /LPF Test 04/06/19 02:00 04/06/19 08:45 04/07/19 05:25 Heparin Anti-Xa Act, Unfractionated 0.63 IU/mL (0.30-0.70) 0.68 IU/mL (0.30-0.70) 0.54 IU/mL (0.30-0.70) Troponin I Quantitative 0.535 ng/mL (0.000-0.055) Laboratory Tests Test 04/07/19 05:25 Heparin Anti-Xa Act, Unfractionated 0.54 IU/mL (0.30-0.70) SARAH PERRIN MD Apr 07, 2019 09:29
[2019-04-07] MEDS ORDERED: POLYETHYLENE GLYCOL 3350 17 GM PACKET. PO PRN ×2 (09:45→10:45)
--- NOTE | 2019-04-07 09:58 | PDOC ---
PROGRESS NOTES Subjective Subjective feels better today Objective Objective Vital Signs Date Time Temp Pulse Resp B/P (MAP) Pulse Ox O2 Delivery O2 Flow Rate FiO2 04/07/19 08:32 93 Room Air 04/07/19 07:00 97.7 55 18 139/92 (108) 97.7 Intake and Output 04/07/19 06:59 Intake Total 600 ml Balance 600 ml Intake Oral 600 ml Physical Exam Abdomen: Normal bowel sounds, Soft Heart: Regular rate, Normal S1, Normal S2 Extremities: No clubbing, Normal pulses General: Alert, Oriented X3, Cooperative, No acute distress Lungs: Clear to auscultation MUSCULOSKELETAL: Other (Patient with surgical portals in left knee r/t arthroscopy) Neck: No JVD Psych/Mental Status: Mental status NL Skin: No breakdown Diagnosis Problem List Problems Medical Problems: (1) COPD (chronic obstructive pulmonary disease) Status: Chronic (2) Pulmonary embolism Status: Acute Assessment Assessment Problems Medical Problems: (1) COPD (chronic obstructive pulmonary disease) Status: Chronic (2) Pulmonary embolism Status: Acute FINAL IMPRESSION: 1. Pulmonary embolism. 2. Deep venous thrombosis. 3. Recent left knee laparoscopic surgery. 4. History of smoking, now vaping. PLAN: Heparin drip. Eliquis start today. home tomorrow pt/ot. appreciate heam/pul consults. At this time, the patient is admitted to the hospital, IV heparin drip. Pulmonary is consulted for pulmonary embolism. Hematology consulted to rule out hypercoagulable state. Also, will have orthopedic followup because of the knee arthroscopy. The patient is hemodynamically stable. Plan Plan of Care Problems Medical Problems: (1) COPD (chronic obstructive pulmonary disease) Status: Chronic (2) Pulmonary embolism Status: Acute Comment Review of Relevant I have reviewed the following items caprice (where applicable) has been applied. Labs Laboratory Tests Test 04/07/19 05:25 Heparin Anti-Xa Act, Unfractionated 0.54 IU/mL (0.30-0.70) Medications Current Medications Acetaminophen/ Hydrocodone Bitart (Lortab 5/325) 2 tab PRN Q4HRS PRN PO MILD PAIN / TEMP Last administered on 04/07/19at 08:32; Start 04/06/19 at 10:15 Apixaban (Eliquis) 5 mg BID PO ; Start 04/14/19 at 21:00 Apixaban (Eliquis) 10 mg BID PO ; Start 04/07/19 at 21:00; Stop 04/14/19 at 09:01 Aspirin (Children'S Aspirin) 81 mg DAILY PO Last administered on 04/07/19 08:33; Start 04/06/19 at 12:00; Stop 04/07/19 at 09:36; Status DC Calcium Carbonate/ Glycine (Oscal) 500 mg DAILY PO Last administered on 04/07/19 08:33; Start 04/06/19 at 12:00 Cetirizine HCl (ZyrTEC) 10 mg DAILY PO Last administered on 04/07/19 08:33; Start 04/06/19 at 12:00 Docusate Sodium (Colace) 100 mg BID PO Last administered on 04/07/19 08:33; Start 04/06/19 at 12:00 Nicotine (Nicoderm Cq 7mg) 1 patch 1X ONCE TD Last administered on 04/06/19 21:33; Start 04/06/19 at 21:00; Stop 04/06/19 at 21:01; Status DC Nicotine (Nicoderm Cq 7mg) 1 patch DAILY TD ; Start 04/07/19 at 09:00 Pantoprazole Sodium (Protonix) 40 mg DAILYAC PO Last administered on 04/07/19at 08:32; Start 04/07/19 at 07:30 Polyethylene Glycol (miraLAX PACKET) 17 gm PRN DAILY PRN PO CONSTIPATION; Start 04/07/19 at 09:45 Vitamin D (Vitamin D3) 3,000 unit DAILY PO Last administered on 04/07/19 08:33; Start 04/06/19 at 12:00 Vitals/I & O Vital Sign - Last 24 Hours 04/06/19 04/06/19 04/06/19 04/06/19 11:00 15:00 19:35 19:51 Temp 98.4 98.2 98.4 98.2 Pulse 79 77 Resp 18 18 B/P (MAP) 130/67 (88) 159/76 (103) Pulse Ox 96 95 96 O2 Delivery Room Air Room Air Room Air Room Air 04/06/19 04/06/19 04/06/19 04/07/19 20:00 20:50 23:00 00:06 Temp 97.8 97.8 Pulse 64 Resp 21 18 18 B/P (MAP) 133/71 (91) Pulse Ox 96 94 94 O2 Delivery Room Air Room Air Room Air Room Air 04/07/19 04/07/19 04/07/19 04/07/19 02:10 03:50 04:17 05:14 Temp 97.6 97.6 Pulse 59 Resp 18 20 18 22 B/P (MAP) 153/70 (97) Pulse Ox 94 94 94 94 O2 Delivery Room Air Room Air Room Air Room Air 04/07/19 04/07/19 07:00 08:32 Temp 97.7 97.7 Pulse 55 Resp 18 B/P (MAP) 139/92 (108) Pulse Ox 93 93 O2 Delivery Room Air Room Air Intake and Output 04/06/19 04/06/19 04/07/19 14:59 22:59 06:59 Intake Total 600 ml Balance 600 ml GILBERT PARKER MD Apr 07, 2019 09:58
[2019-04-07] MEDS ORDERED: SENNOSIDES/DOCUSATE 8.6/50MG TABLET. PO PRN (10:00)
[2019-04-07] MEDS: APIXABAN 5 MG TABLET. PO SCH ×2 (10:11→20:38)
[2019-04-07] MEDS: NICOTINE 7MG PATCH. TD SCH (10:11)
[2019-04-07 11:00] VITALS: BP 146/80
--- NOTE | 2019-04-07 12:28 | PDOC ---
PROGRESS NOTES Subjective Subjective Events reviewed, chart reviewed. I had spoken to his by phone on Saturday and recommended urgent trip to ER with symptoms of SOB, diaphoresis. He's feeling better now, on Heparin drip and starting Eliquis today. Other specialists input much appreciated. Still reports some knee pain and swelling; the calf pain is starting to subside. Objective Vital Signs Vital Signs Date Time Temp Pulse Resp B/P (MAP) Pulse Ox O2 Delivery O2 Flow Rate FiO2 04/07/19 12:13 95 Room Air 04/07/19 11:00 97.6 66 18 146/80 (102) 97.6 Physical Exam Appears comfortable, not SOB Knee with slight effusion, appears normal for postop knee scope, with no erythema or drainage. Calf is still slightly swollen and tender Labs Laboratory Tests Test 04/05/19 18:49 04/05/19 19:15 04/05/19 22:30 04/05/19 23:00 White Blood Count 10.5 x10^3/uL (4.0-11.0) Red Blood Count 5.24 x10^6/uL (4.30-5.70) Hemoglobin 16.5 g/dL (13.0-17.5) Hematocrit 49.0 % (39.0-53.0) Mean Corpuscular Volume 94 fL (79-100) Mean Corpuscular Hemoglobin 32 pg (25-35) Mean Corpuscular Hemoglobin Concent 34 g/dL (31-37) Red Cell Distribution Width 13.6 % (11.5-14.5) Platelet Count 173 x10^3/uL (140-400) Neutrophils (%) (Auto) 82 % (31-73) Lymphocytes (%) (Auto) 9 % (24-48) Monocytes (%) (Auto) 8 % (0-9) Eosinophils (%) (Auto) 1 % (0-3) Basophils (%) (Auto) 0 % (0-3) Neutrophils # (Auto) 8.6 x10^3/uL (1.8-7.7) Lymphocytes # (Auto) 0.9 x10^3/uL (1.0-4.8) Monocytes # (Auto) 0.9 x10^3/uL (0.0-1.1) Eosinophils # (Auto) 0.1 x10^3/uL (0.0-0.7) Basophils # (Auto) 0.0 x10^3/uL (0.0-0.2) Prothrombin Time 14.2 SEC (11.7-14.0) Prothromb Time International Ratio 1.1 (0.8-1.1) Activated Partial Thromboplast Time 29 SEC (24-38) Sodium Level 141 mmol/L (136-145) Potassium Level 4.8 mmol/L (3.5-5.1) Chloride Level 105 mmol/L (98-107) Carbon Dioxide Level 30 mmol/L (21-32) Anion Gap 6 (6-14) Blood Urea Nitrogen 15 mg/dL (8-26) Creatinine 1.1 mg/dL (0.7-1.3) Estimated GFR (Cockcroft-Gault) 68.8 BUN/Creatinine Ratio 14 (6-20) Glucose Level 130 mg/dL (70-99) Lactic Acid Level 1.6 mmol/L (0.4-2.0) Calcium Level 8.6 mg/dL (8.5-10.1) Magnesium Level 1.8 mg/dL (1.8-2.4) Total Bilirubin 0.4 mg/dL (0.2-1.0) Aspartate Amino Transf (AST/SGOT) 15 U/L (15-37) Alanine Aminotransferase (ALT/SGPT) 31 U/L (16-63) Alkaline Phosphatase 66 U/L (46-116) Creatine Kinase 104 U/L (39-308) Creatine Kinase MB (Mass) 2.7 ng/mL (0.0-3.6) Creatine Kinase MB Relative Index 2.6 % (0-4) Troponin I Quantitative 0.556 ng/mL (0.000-0.055) 0.720 ng/mL (0.000-0.055) Total Protein 6.1 g/dL (6.4-8.2) Albumin 3.4 g/dL (3.4-5.0) Albumin/Globulin Ratio 1.3 (1.0-1.7) Urine Collection Type Unknown Urine Color Yellow Urine Clarity Clear Urine pH 5.5 Urine Specific Brent >=1.030 Urine Protein Negative mg/dL (NEG-TRACE) Urine Glucose (UA) Negative mg/dL (NEG) Urine Ketones (Stick) Negative mg/dL (NEG) Urine Blood Negative (NEG) Urine Nitrite Negative (NEG) Urine Bilirubin Negative (NEG) Urine Urobilinogen Dipstick 0.2 mg/dL (0.2 mg/dL) Urine Leukocyte Esterase Trace (NEG) Urine RBC 0 /HPF (0-2) Urine WBC Rare /HPF (0-4) Urine Squamous Epithelial Cells None /LPF Urine Bacteria 0 /HPF (0-FEW) Urine Mucus Slight /LPF Test 04/06/19 02:00 04/06/19 08:45 04/07/19 05:25 Heparin Anti-Xa Act, Unfractionated 0.63 IU/mL (0.30-0.70) 0.68 IU/mL (0.30-0.70) 0.54 IU/mL (0.30-0.70) Troponin I Quantitative 0.535 ng/mL (0.000-0.055) Laboratory Tests Test 04/07/19 05:25 Heparin Anti-Xa Act, Unfractionated 0.54 IU/mL (0.30-0.70) Imaging ADDENDUM Addendum: To clarify the report, partially occlusive thrombus is seen involving one of the posterior tibial veins and occlusive thrombus is seen involving one of the peroneal veins within the left calf. These findings are consistent with left calf DVT. There is no sonographic evidence of deep venous thrombosis involving the left popliteal, superficial femoral or left common femoral vein. Electronically signed by: Bobby Peralta MD (04/05/2019 8:15 PM) [facility] DICTATED AND SIGNED BY: BOBBY PERALTA MD DATE: 04/05/192014 CC: GILBERT PARKER MD; UNKNOWN PCP NAME; SCOOTER CARRANZA MD; LANRE FRANKLIN DO ~ Left lower extremity venous duplex study 04/05/2019 Clinical History: Left leg pain and swelling. Technique: Using a combination of real time ultrasound imaging and color-flow and pulse Doppler imaging techniques along with graded compression and augmentation, duplex evaluation of the deep venous system of the left lower extremity was performed. Multiple images were obtained. Findings: There is no sonographic evidence of deep venous thrombosis involving the visualized deep venous structures of the left lower extremity. Impression: Negative study. Electronically signed by: Bobby Peralta MD (04/05/2019 7:28 PM) [facility] DICTATED and SIGNED BY: BOBBY PERALTA MD DATE: 04/05/191927 [facility] [address] [place] [address] IMAGING REPORT Signed PATIENT: HUMBERTO ARAGON ACCOUNT: [id number] : 1960 LOCATION: [address] [place] [address] AGE: 58 SEX: M EXAM STATUS: ADM IN ORD. PHYSICIAN: LANRE FRANKLIN DO REASON: syncope, SOA, recent surgery, OMNI 350, 100ml PROCEDURE: CT ANGIOGRAPHY CHEST Exam: CT chest with contrast INDICATION: Syncope TECHNIQUE: Sequential axial images through the chest obtained without IV contrast. Sagittal and coronal reformatted images were reconstructed from the axial data and reviewed. Three-D reformatted images reconstructed from the axial data and reviewed. Comparisons: None FINDINGS: Visualized portions of the thyroid are unremarkable. No enlarged mediastinal lymph nodes. Heart size is normal. No pericardial effusion. Thoracic aorta has a normal course and caliber. Pulmonary artery is not enlarged. Acute pulmonary emboli noted within lobar branches of the right middle and upper lobe as well as left upper and lower lobe extending into segmental and subsegmental branches. Subsegmental pulmonary emboli in the right lower lobe also noted. Airways are patent. No consolidation or pneumothorax. Strandy opacities at the dependent portion the lung bases likely representing atelectasis. No suspicious lung nodules are identified. Visualized upper abdomen is unremarkable. Small hiatal hernia. No suspicious osseous lesions or acute fractures. IMPRESSION: Extensive pulmonary emboli noted within lobar branches of the right upper, middle and left upper and lower lobe with subsegmental pulmonary emboli in the right lower lobe. Exposure: One or more of the following in the visualized dose reduction techniques were utilized for this examination: 1. Automated exposure control 2. Adjustment of the MA and/or KV according to patient size 3. Use of iterative of reconstructive technique Electronically signed by: Darien Sibley MD (04/05/2019 8:56 PM) [facility] DICTATED and SIGNED BY: DARIEN SIBLEY MD DATE: 04/05/192055 Assessment Assessment postop knee scope surgery on 04/03 so postop day 4 now DVT bilateral PE no known clotting disorder but might be appropriate to test for the usual suspects. Appreciate Heme/Onc input. Plan Plan of Care Anticoagulation per Hospitalist and Heme/Onc When the calf feels better would encourage ROM, but may hold any aggressive ROM while calf remains tender/painful. Toe touch WB is my usual postop weightbearing. Ok to do quad sets and SLR for quad rehab as tolerated. SCOOTER CARRANZA MD Apr 07, 2019 12:27
--- NOTE | 2019-04-07 13:45 | PDOC ---
PULMONARY PROGRESS NOTES Subjective PT LESS SOA NO MORE PLEURISY TYPE OF DISCOMFORT Vitals Vital Signs Date Time Temp Pulse Resp B/P (MAP) Pulse Ox O2 Delivery O2 Flow Rate FiO2 04/07/19 12:13 95 Room Air 04/07/19 11:00 97.6 66 18 146/80 (102) 97.6 ROS: No Nausea, No Chest Pain, No Abdominal Pain, No Increase Cough General: Alert Lungs: Clear Cardiovascular: S1 Abdomen: Soft, Non-tender Neuro Exam: Alert Extremities: No Edema Skin: Warm Labs Laboratory Tests Test 04/05/19 18:49 04/05/19 19:15 04/05/19 22:30 04/05/19 23:00 White Blood Count 10.5 x10^3/uL (4.0-11.0) Red Blood Count 5.24 x10^6/uL (4.30-5.70) Hemoglobin 16.5 g/dL (13.0-17.5) Hematocrit 49.0 % (39.0-53.0) Mean Corpuscular Volume 94 fL (79-100) Mean Corpuscular Hemoglobin 32 pg (25-35) Mean Corpuscular Hemoglobin Concent 34 g/dL (31-37) Red Cell Distribution Width 13.6 % (11.5-14.5) Platelet Count 173 x10^3/uL (140-400) Neutrophils (%) (Auto) 82 % (31-73) Lymphocytes (%) (Auto) 9 % (24-48) Monocytes (%) (Auto) 8 % (0-9) Eosinophils (%) (Auto) 1 % (0-3) Basophils (%) (Auto) 0 % (0-3) Neutrophils # (Auto) 8.6 x10^3/uL (1.8-7.7) Lymphocytes # (Auto) 0.9 x10^3/uL (1.0-4.8) Monocytes # (Auto) 0.9 x10^3/uL (0.0-1.1) Eosinophils # (Auto) 0.1 x10^3/uL (0.0-0.7) Basophils # (Auto) 0.0 x10^3/uL (0.0-0.2) Prothrombin Time 14.2 SEC (11.7-14.0) Prothromb Time International Ratio 1.1 (0.8-1.1) Activated Partial Thromboplast Time 29 SEC (24-38) Sodium Level 141 mmol/L (136-145) Potassium Level 4.8 mmol/L (3.5-5.1) Chloride Level 105 mmol/L (98-107) Carbon Dioxide Level 30 mmol/L (21-32) Anion Gap 6 (6-14) Blood Urea Nitrogen 15 mg/dL (8-26) Creatinine 1.1 mg/dL (0.7-1.3) Estimated GFR (Cockcroft-Gault) 68.8 BUN/Creatinine Ratio 14 (6-20) Glucose Level 130 mg/dL (70-99) Lactic Acid Level 1.6 mmol/L (0.4-2.0) Calcium Level 8.6 mg/dL (8.5-10.1) Magnesium Level 1.8 mg/dL (1.8-2.4) Total Bilirubin 0.4 mg/dL (0.2-1.0) Aspartate Amino Transf (AST/SGOT) 15 U/L (15-37) Alanine Aminotransferase (ALT/SGPT) 31 U/L (16-63) Alkaline Phosphatase 66 U/L (46-116) Creatine Kinase 104 U/L (39-308) Creatine Kinase MB (Mass) 2.7 ng/mL (0.0-3.6) Creatine Kinase MB Relative Index 2.6 % (0-4) Troponin I Quantitative 0.556 ng/mL (0.000-0.055) 0.720 ng/mL (0.000-0.055) Total Protein 6.1 g/dL (6.4-8.2) Albumin 3.4 g/dL (3.4-5.0) Albumin/Globulin Ratio 1.3 (1.0-1.7) Urine Collection Type Unknown Urine Color Yellow Urine Clarity Clear Urine pH 5.5 Urine Specific [place] >=1.030 Urine Protein Negative mg/dL (NEG-TRACE) Urine Glucose (UA) Negative mg/dL (NEG) Urine Ketones (Stick) Negative mg/dL (NEG) Urine Blood Negative (NEG) Urine Nitrite Negative (NEG) Urine Bilirubin Negative (NEG) Urine Urobilinogen Dipstick 0.2 mg/dL (0.2 mg/dL) Urine Leukocyte Esterase Trace (NEG) Urine RBC 0 /HPF (0-2) Urine WBC Rare /HPF (0-4) Urine Squamous Epithelial Cells None /LPF Urine Bacteria 0 /HPF (0-FEW) Urine Mucus Slight /LPF Test 04/06/19 02:00 04/06/19 08:45 04/07/19 05:25 Heparin Anti-Xa Act, Unfractionated 0.63 IU/mL (0.30-0.70) 0.68 IU/mL (0.30-0.70) 0.54 IU/mL (0.30-0.70) Troponin I Quantitative 0.535 ng/mL (0.000-0.055) Laboratory Tests Test 04/07/19 05:25 Heparin Anti-Xa Act, Unfractionated 0.54 IU/mL (0.30-0.70) Medications Active Scripts Medications Dose Route/Sig Max Daily Dose Days Date Category Colace (Docusate Sodium) 100 Mg Capsule 1 Cap PO BID 04/06/19 Reported Vitamin D (Cholecalciferol (Vitamin D3)) 1,000 Unit Capsule 3,000 Unit PO DAILY PRN 04/06/19 Reported Zyrtec (Cetirizine Hcl) 10 Mg Tablet 1 Tab PO DAILY 04/06/19 Reported Meloxicam 15 Mg Tablet 1 Tab PO DAILY 04/06/19 Reported Aspirin 81 Mg Tab.chew 1 Tab PO DAILY 04/06/19 Reported Hydrocodone-Apap 5-325 (Hydrocodone Bit/Acetaminophen) 1 Tab Tablet 2 Tab PO PRN Q4HRS PRN 04/06/19 Reported Calcium (Calcium Carbonate) 500 Mg Tab.chew 500 Mg PO DAILY 04/06/19 Reported Omeprazole 20 Mg Capsule. 1 Cap PO DAILY 04/06/19 Reported Impression . IMPRESSION: 1. Acute pulmonary embolism. 2. Left deep venous thrombosis. 3. Elevated troponin secondary to right heart strain. 4. Status post left knee arthroscopic surgery. 5. Chronic obstructive pulmonary disease, unknown FEV1. Plan . FOLLOW UP IN OFFICE IN [address] CHEST HOME SOON ON NE Brunson/Bhargav Brunson/ FOSTER DE LA CRUZ MD Apr 07, 2019 13:45
[2019-04-07 15:00] VITALS: BP 150/76
[2019-04-07 19:50] VITALS: BP 154/87
[2019-04-07] MEDS ORDERED: CALCIUM CARBONATE 500 MG TAB.CHEW PO PRN (21:00)
[2019-04-07 22:50] VITALS: BP 173/80
[2019-04-08 03:00] VITALS: BP 146/88
[2019-04-08] MEDS: HYDROcodone/APAP 5/325MG 1 TAB TABLET PO PRN ×2 (03:28→08:18)
[2019-04-08 07:00] VITALS: BP 138/82
[2019-04-08] MEDS: NICOTINE 7MG PATCH. TD SCH (08:10)
[2019-04-08] MEDS: DOCUSATE SODIUM 100 MG CAPSULE. PO SCH (08:12)
[2019-04-08] MEDS: APIXABAN 5 MG TABLET. PO SCH (08:12)
[2019-04-08] MEDS: CETIRIZINE HCL 10 MG TABLET. PO SCH (08:12)
[2019-04-08] MEDS: PANTOPRAZOLE 40 MG TABLET.DR. PO SCH (08:13)
[2019-04-08] MEDS: CHOLECALCIFEROL (VITAMIN D3) 1,000 UNIT TABLET PO SCH (08:13)
[2019-04-08] MEDS: CALCIUM CARBONATE 500 MG TABLET PO SCH (08:13)
--- NOTE | 2019-04-08 08:38 | PDOC ---
PULMONARY PROGRESS NOTES Subjective PT LESS SOA NO MORE PLEURISY TYPE OF DISCOMFORT Vitals Vital Signs Date Time Temp Pulse Resp B/P (MAP) Pulse Ox O2 Delivery O2 Flow Rate FiO2 04/08/19 08:18 Room Air 04/08/19 07:00 97.7 59 18 138/82 (100) 97 97.7 ROS: No Nausea, No Chest Pain, No Abdominal Pain, No Increase Cough General: Alert Lungs: Clear Cardiovascular: S1 Abdomen: Soft, Non-tender Neuro Exam: Alert Extremities: No Edema Skin: Warm Labs Laboratory Tests Test 04/06/19 08:45 04/07/19 05:25 Heparin Anti-Xa Act, Unfractionated 0.68 IU/mL (0.30-0.70) 0.54 IU/mL (0.30-0.70) Medications Active Scripts Medications Dose Route/Sig Max Daily Dose Days Date Category Colace (Docusate Sodium) 100 Mg Capsule 1 Cap PO BID 04/06/19 Reported Vitamin D (Cholecalciferol (Vitamin D3)) 1,000 Unit Capsule 3,000 Unit PO DAILY PRN 04/06/19 Reported Zyrtec (Cetirizine Hcl) 10 Mg Tablet 1 Tab PO DAILY 04/06/19 Reported Meloxicam 15 Mg Tablet 1 Tab PO DAILY 04/06/19 Reported Aspirin 81 Mg Tab.chew 1 Tab PO DAILY 04/06/19 Reported Hydrocodone-Apap 5-325 (Hydrocodone Bit/Acetaminophen) 1 Tab Tablet 2 Tab PO PRN Q4HRS PRN 04/06/19 Reported Calcium (Calcium Carbonate) 500 Mg Tab.chew 500 Mg PO DAILY 04/06/19 Reported Omeprazole 20 Mg Capsule. 1 Cap PO DAILY 04/06/19 Reported Impression . IMPRESSION: 1. Acute pulmonary embolism. 2. Left deep venous thrombosis. 3. Elevated troponin secondary to right heart strain. 4. Status post left knee arthroscopic surgery. 5. Chronic obstructive pulmonary disease, unknown FEV1. Plan . FOLLOW UP IN OFFICE IN [address] CHEST HOME SOON ON NE Brunson/Bhargav Brunson/ FOSTER DE LA CRUZ MD Apr 08, 2019 08:38
--- NOTE | 2019-04-08 08:59 | NUR ---
SW following pt. PT/OT recommends with home with assistance. No SW needs noted at this time.
--- NOTE | 2019-04-08 09:30 | PDOC ---
SUBJECTIVE Subjective S: Breathing at about 90%, walking with crutches O: Physical exam: Gen.: Well-nourished and well-developed, resting in chair Lungs: Breathing comfortably with no evidence of respiratory distress on room air Extremities: Left knee wrapped Psychiatric: Pleasant mood and affect Labs: No labs today, reviewed Assessment and Plan: He is a 58-year-old man with postoperative acute PE and left calf vein thrombosis, now on apixaban, planned for 6 months PE: doing well, on apixaban 10 mg by mouth twice a day �7 days to be followed by 5 mg by mouth twice a day times a planned 6 months Left calf vein thrombosis: Recommend compression stockings as able Disposition: today likely, he will follow-up with us after discharge Constipation: prn's Tobacco abuse: Recommend complete tobacco cessation Thank you kindly and please do not hesitate to call with questions. OBJECTIVE Vital Signs Vital Signs Date Time Temp Pulse Resp B/P (MAP) Pulse Ox O2 Delivery O2 Flow Rate FiO2 04/08/19 08:18 Room Air 04/08/19 07:00 97.7 59 18 138/82 (100) 97 Room Air 97.7 04/08/19 04:57 20 93 Room Air 04/08/19 03:29 18 93 Room Air 04/08/19 03:00 97.9 60 18 146/88 (107) 93 Room Air 97.9 04/07/19 22:50 98.0 74 18 173/80 (111) 93 Room Air 98.0 04/07/19 22:20 20 94 Room Air 04/07/19 20:38 18 94 Room Air 04/07/19 20:09 Room Air 04/07/19 19:50 97.8 72 18 154/87 (109) 94 Room Air 97.8 04/07/19 17:52 94 Room Air 04/07/19 16:42 94 Room Air 04/07/19 15:57 94 Room Air 04/07/19 15:00 97.7 69 18 150/76 (100) 94 Room Air 97.7 04/07/19 12:13 95 Room Air 04/07/19 11:00 97.6 66 18 146/80 (102) 95 Room Air 97.6 04/07/19 10:14 93 Room Air I & O Intake and Output 04/08/19 06:59 Intake Total 1180 ml Balance 1180 ml Intake Oral 1180 ml # Voids 6 # Bowel Movements 1 SARAH GALINDO MD Apr 08, 2019 09:30
--- NOTE | 2019-04-08 09:58 | PDOC ---
PROGRESS NOTES Subjective Subjective feels better ready to go home Objective Objective Vital Signs Date Time Temp Pulse Resp B/P (MAP) Pulse Ox O2 Delivery O2 Flow Rate FiO2 04/08/19 08:18 Room Air 04/08/19 07:00 97.7 59 18 138/82 (100) 97 97.7 Intake and Output 04/08/19 06:59 Intake Total 1180 ml Balance 1180 ml Intake Oral 1180 ml # Voids 6 # Bowel Movements 1 Physical Exam Abdomen: Normal bowel sounds, Soft Heart: Regular rate, Normal S1, Normal S2 Extremities: No clubbing, Normal pulses General: Alert, Oriented X3, Cooperative, No acute distress Lungs: Clear to auscultation MUSCULOSKELETAL: Other (Patient with surgical portals in left knee r/t arthroscopy) Neck: No JVD Psych/Mental Status: Mental status NL Skin: No breakdown COMMENT lt knee dressing Diagnosis Problem List Problems Medical Problems: (1) COPD (chronic obstructive pulmonary disease) Status: Chronic (2) Pulmonary embolism Status: Acute Assessment Assessment Problems Medical Problems: (1) COPD (chronic obstructive pulmonary disease) Status: Chronic (2) Pulmonary embolism Status: Acute FINAL IMPRESSION: 1. Pulmonary embolism. 2. Deep venous thrombosis. 3. Recent left knee laparoscopic surgery. 4. History of smoking, now vaping. PLAN: d/c home today Eliquis started. take eliquis for 6 months pt/ot/out pt rehab. appreciate heam/pul consults. smoking counseling done Plan Plan of Care Problems Medical Problems: (1) COPD (chronic obstructive pulmonary disease) Status: Chronic (2) Pulmonary embolism Status: Acute Comment Review of Relevant I have reviewed the following items caprice (where applicable) has been applied. Medications Current Medications Apixaban (Eliquis) 5 mg BID PO ; Start 04/14/19 at 09:00 Apixaban (Eliquis) 10 mg BID PO Last administered on 04/08/19at 08:18; Start 04/07/19 at 10:00; Stop 04/13/19 at 21:01 Calcium Carbonate/ Glycine (Tums) 500 mg PRN AFTMEALHC PRN PO INDIGESTION Last administered on 04/07/19at 22:20; Start 04/07/19 at 21:00 Polyethylene Glycol (miraLAX PACKET) 17 gm PRN DAILY PRN PO CONSTIPATION; Start 04/07/19 at 10:45; Status UNV Senna/Docusate Sodium (Senna Plus) 1 tab PRN BID PRN PO CONSTIPATION, 2ND CHOICE; Start 04/07/19 at 10:00 Vitals/I & O Vital Sign - Last 24 Hours 04/07/19 04/07/19 04/07/19 04/07/19 10:14 11:00 12:13 15:00 Temp 97.6 97.7 97.6 97.7 Pulse 66 69 Resp 18 18 B/P (MAP) 146/80 (102) 150/76 (100) Pulse Ox 93 95 95 94 O2 Delivery Room Air Room Air Room Air Room Air 04/07/19 04/07/19 04/07/19 04/07/19 15:57 16:42 17:52 19:50 Temp 97.8 97.8 Pulse 72 Resp 18 B/P (MAP) 154/87 (109) Pulse Ox 94 94 94 94 O2 Delivery Room Air Room Air Room Air Room Air 04/07/19 04/07/19 04/07/19 04/07/19 20:09 20:38 22:20 22:50 Temp 98.0 98.0 Pulse 74 Resp 18 20 18 B/P (MAP) 173/80 (111) Pulse Ox 94 94 93 O2 Delivery Room Air Room Air Room Air Room Air 04/08/19 04/08/19 04/08/19 04/08/19 03:00 03:29 04:57 07:00 Temp 97.9 97.7 97.9 97.7 Pulse 60 59 Resp 18 18 20 18 B/P (MAP) 146/88 (107) 138/82 (100) Pulse Ox 93 93 93 97 O2 Delivery Room Air Room Air Room Air Room Air 04/08/19 08:18 O2 Delivery Room Air Intake and Output 04/07/19 04/07/19 04/08/19 14:59 22:59 06:59 Intake Total 480 ml 200 ml 500 ml Balance 480 ml 200 ml 500 ml GILBERT PARKER MD Apr 08, 2019 09:58
[2019-04-08] MEDS ORDERED: APIX5TAB PO (10:02)
[2019-04-08 10:54] VITALS: BP 137/78
--- NOTE | 2019-04-08 15:52 | PDOC ---
Provider Note Provider Note Discharge summary dictated.#[id number] GILBERT PARKER MD Apr 08, 2019 15:52
--- NOTE | 2019-04-08 20:02 | DS ---
DATE OF DISCHARGE: 04/08/2019 REASON FOR ADMISSION TO THE HOSPITAL: Pulmonary embolism. CONSULTATIONS: 1. Adonay Navarrete MD 2. Kate Perrin MD PROCEDURES DONE: 1. Venous Doppler. 2. CT angiogram of the chest. COMPLICATIONS NOTED: None. HOSPITAL COURSE: The patient is a 58-year-old male patient who had a left knee arthroscopy 2 days ago and he had collapsed at home and he woke up, he was not sure what happened and called the family, was brought to the hospital, was found to have a DVT left leg and also pulmonary embolism in multiple segments. The patient was put on heparin drip, was seen by pulmonology and also orthopedic and hematology. The patient was changed from heparin drip to Eliquis. Seen by Hematology, recommended anticoagulation for 6 months, seen by pulmonology. The patient is unstable. Pulmonary kirby he does not need oxygen. Cardiac was stable. There is a slight bump in troponin to 0.5, secondary to demand ischemia from pulmonary embolism. On the whole, the patient's condition improved and he was discharged home on Eliquis to take 10 mg twice daily for 7 days, 5 mg twice daily for 6 months, follow up with hematology in a couple of weeks and PCP, Dr. Weiss in 1 week. GILBERT PARKER MD DR: BRIANNA/dru JOB#: [id number] / [id number] PREMA Malik PENELOPE MD
[2019-04-14] MEDS ORDERED: APIXABAN 5 MG TABLET. PO SCH (09:00)
== END 2019-04-08 13:00 | disposition home or self-care (01) | DRG 299 ==
LOC: ER 17:58 → 2 SOUTH 19:15
PROVIDERS: ADMIT Internal Medicine; ATTEND Internal Medicine
DX: I82.4Z2 Acute embolism and thrombosis of unspecified deep veins of left distal lower extremity (principal); I26.99 Other pulmonary embolism without acute cor pulmonale; J44.9 Chronic obstructive pulmonary disease, unspecified; F17.200 Nicotine dependence, unspecified, uncomplicated; K59.00 Constipation, unspecified; Z85.828 Personal history of other malignant neoplasm of skin; Z88.0 Allergy status to penicillin; Z88.2 Allergy status to sulfonamides
CPT/HCPCS: 36415; 70450; 71275; 72125; 80053; 81001; 82553; 83605; 83735; 84484; 85025; 85520; 85610; 85730; 87086; 93005; 93971; 96361; 96374; J1644; J3010; J7030; Q9967; 99285-25; G0378